=== PATIENT | female | born 1980 | race Two or more races ===

== ENCOUNTER 2020-03-31 05:34 | Emergency (ER) | payer MEDICAID ==
[~2020-03-31] VITALS: Ht 172.7 cm; Wt 86.2 kg
[2020-03-31 05:50] VITALS: BP 111/83
[2020-03-31] MEDS ORDERED: ACETAMINOPHEN 500 MG TAB PO ONE (06:45)
[2020-03-31] MEDS ORDERED: cefTRIAXone SOD 1,000 MG VL IM ONE (06:45)
== END 2020-03-31 07:37 | disposition home or self-care (01) ==
LOC: ER 05:34
DX: J02.9 Acute pharyngitis, unspecified (principal); Z20.822 Contact with and (suspected) exposure to COVID-19
CPT/HCPCS: 36415; 71045; 87426; 96372; 99284; J0696

== ENCOUNTER 2020-05-09 18:29 | Emergency (ER) | payer MEDICAID ==
[~2020-05-09] VITALS: Ht 175.3 cm; Wt 86.2 kg
[2020-05-09 19:08] LABS: Basophils # (auto) 0.1 10 ^3/uL (0-0.2); Basophils % (auto) 1.1 % (0.0-2.0); Eosinophils # (auto) 0.3 10 ^3/uL (0-0.8); Eosinophils % (auto) 4.2 % (0.0-7.0); Hematocrit 36.4 % (36.0-46.0); Hemoglobin 12.3 g/dL (12.2-16.2); Lymphocytes # (auto) 2.2 10 ^3/uL (0.4-5.4); Lymphocytes % (auto) 33.1 % (10.0-50.0); Mean Corpuscular Hemoglobin 31.1 pg (28.0-32.0); Mean Corpuscular Hgb Conc. 33.7 g/dL (32.0-36.0); Mean Corpuscular Volume 92.3 fL (80.0-100.0); Monocytes # (auto) 0.4 10 ^3/uL (0-1.3); Monocytes % (auto) 6.4 % (0.0-12.0); Neutrophils # (auto) 3.7 10 ^3/uL (1.6-8.6); Neutrophils % (auto) 55.2 % (37.0-80.0); Nucleated Red Blood Cells % 0.1 %; Red Blood Cells 3.95 10^6/uL (4.0-5.20); Red Cell Distribution Width 13.7 % (11.8-14.3); White Blood Cell 6.7 10^3/uL (4.4-10.8)
[2020-05-09 19:34] LABS: Chloride 111 mmol/L (98-107); Potassium 4.2 mmol/L (3.5-5.1); Sodium 141 mmol/L (136-145)
[2020-05-09 19:41] LABS: INR 1.01 (0.9-1.15); Partial Thromboplastin Time 26.3 sec (23.0-31.2)
[2020-05-09 19:43] LABS: Alanine Aminotransferase 31 U/L (13-56); Albumin 3.6 g/dL (3.4-5.0); Alkaline Phosphatase 93 U/L (45-117); Anion Gap 4 (5-15); Aspartate Aminotransferase 24 U/L (15-37); Bilirubin, Total 0.2 mg/dL (0.2-1.0); Blood Urea Nitrogen 16 mg/dL (7-18); Calcium 8.4 mg/dL (8.5-10.1); Carbon Dioxide 26 mmol/L (21-32); GFR African American 133 mL/min; GFR Non-African American 110 mL/min; Glucose 92 mg/dL (74-106); Total Protein 7.1 g/dL (6.4-8.2)
[2020-05-09 19:52] VITALS: BP 113/64
[2020-05-09 21:26] LABS: Urine Bacteria FEW /hpf (None Seen); Urine Blood Negative /uL (Negative); Urine Mucus FEW (None Seen); Urine Specific Gravity 1.024 (1.001-1.035); Urine WBC 9 /hpf (0 - 5); Urine WBC Clumps PRESENT /hpf (None Seen)
== END 2020-05-09 21:05 | disposition home or self-care (01) ==
LOC: ER 18:30
DX: R07.89 Other chest pain (principal); M54.12 Radiculopathy, cervical region
CPT/HCPCS: 36415; 71045; 72125; 80053; 81001; 83880; 84484; 85025; 85379; 85610; 85730; 93005

== ENCOUNTER 2021-02-06 14:08 | Emergency (ER) | payer MEDICAID ==
[~2021-02-06] VITALS: Ht 175.3 cm; Wt 81.6 kg
[2021-02-06 14:11] VITALS: BP 119/72
[2021-02-06 14:35] LABS: Basophils # (auto) 0.1 10 ^3/uL (0-0.2); Eosinophils # (auto) 0.4 10 ^3/uL (0-0.8); Eosinophils % (auto) 4.6 % (0.0-7.0); Hematocrit 37.9 % (36.0-46.0); Hemoglobin 12.6 g/dL (12.2-16.2); Lymphocytes # (auto) 1.9 10 ^3/uL (0.4-5.4); Lymphocytes % (auto) 23.3 % (10.0-50.0); Mean Corpuscular Hemoglobin 30.5 pg (28.0-32.0); Mean Corpuscular Hgb Conc. 33.2 g/dL (32.0-36.0); Mean Corpuscular Volume 91.9 fL (80.0-100.0); Monocytes # (auto) 0.6 10 ^3/uL (0-1.3); Monocytes % (auto) 7.2 % (0.0-12.0); Neutrophils # (auto) 5.2 10 ^3/uL (1.6-8.6); Neutrophils % (auto) 63.9 % (37.0-80.0); Red Blood Cells 4.13 10^6/uL (4.0-5.20); Red Cell Distribution Width 13.4 % (11.8-14.3); White Blood Cell 8.2 10^3/uL (4.4-10.8)
== END 2021-02-06 16:31 | disposition home or self-care (01) ==
LOC: ER 14:08
DX: N93.8 Other specified abnormal uterine and vaginal bleeding (principal); R42 Dizziness and giddiness; Z32.02 Encounter for pregnancy test, result negative
CPT/HCPCS: 36415; 76830; 76856; 84702; 85025

== ENCOUNTER 2021-02-19 11:48 | Emergency (ER) | payer MEDICAID ==
[~2021-02-19] VITALS: Ht 172.7 cm; Wt 77.1 kg
[2021-02-19 14:08] VITALS: BP 112/72
[2021-02-19] MEDS ORDERED: PRED20TA2 PO (14:54)
[2021-02-19] MEDS ORDERED: AMOX-277 PO (14:54)
== END 2021-02-19 15:03 | disposition home or self-care (01) ==
LOC: ER 11:48
DX: J06.9 Acute upper respiratory infection, unspecified (principal); Z20.822 Contact with and (suspected) exposure to COVID-19
CPT/HCPCS: 36415; 71045; 87426

== ENCOUNTER 2021-05-29 18:18 | Inpatient (IN) | payer MEDICAID ==
[~2021-05-29] VITALS: Ht 154.9 cm; Wt 102.4 kg
[~2021-05-29 18:18] MED LIST: AMOX-277 PO; PRED20TA2 PO
[2021-05-29 19:25] LABS: Urine Bacteria FEW /hpf (None Seen); Urine Blood Negative /uL (Negative); Urine Mucus FEW (None Seen); Urine Specific Gravity 1.025 (1.001-1.035); Urine WBC 12 /hpf (0 - 5)
[2021-05-29] MEDS ORDERED: cefTRIAXone 1GM/50ML D5W 50 ML IV ONE (20:00)
[2021-05-29] MEDS ORDERED: fentaNYL CITRATE 100 MCG/2 ML VL IV ONE (20:00)
[2021-05-29 20:17] LABS: Basophils # (auto) 0.1 10 ^3/uL (0-0.2); Basophils % (auto) 0.9 % (0.0-2.0); Eosinophils # (auto) 0.2 10 ^3/uL (0-0.8); Eosinophils % (auto) 1.2 % (0.0-7.0); Hematocrit 37.6 % (36.0-46.0); Hemoglobin 12.4 g/dL (12.2-16.2); Lymphocytes # (auto) 1.2 10 ^3/uL (0.4-5.4); Lymphocytes % (auto) 8.3 % (10.0-50.0); Mean Corpuscular Hgb Conc. 33.1 g/dL (32.0-36.0); Mean Corpuscular Volume 90.7 fL (80.0-100.0); Monocytes # (auto) 0.9 10 ^3/uL (0-1.3); Monocytes % (auto) 6.6 % (0.0-12.0); Neutrophils # (auto) 11.6 10 ^3/uL (1.6-8.6); Red Blood Cells 4.14 10^6/uL (4.0-5.20); Red Cell Distribution Width 13.7 % (11.8-14.3); White Blood Cell 13.9 10^3/uL (4.4-10.8)
[2021-05-29 20:34] LABS: Albumin 3.3 g/dL (3.4-5.0); Calcium 8.5 mg/dL (8.5-10.1); Potassium 3.8 mmol/L (3.5-5.1)
[2021-05-29 20:37] LABS: BUN/Creatinine Ratio 17.6; Bilirubin, Total 0.2 mg/dL (0.2-1.0); CRP High Sensitivity 0.7 mg/dL (< 0.3); Total Protein 7.2 g/dL (6.4-8.2)
[2021-05-29] MEDS ORDERED: KETOROLAC TROMETH 30 MG/ML 1ML VIAL IV ONE (21:30)
[2021-05-29] MEDS ORDERED: HYDROmorphone HCL 2 MG/ML VL IV ONE (22:15)
[2021-05-29] MEDS ORDERED: SODIUM CHLORIDE 0.9% 1,000 ML IV ONE (22:15)
[2021-05-29] MEDS ORDERED: MORPHINE SULFATE INJECTION 2 MG/ML SYRG IV PRN (23:00)
[2021-05-29] MEDS ORDERED: ONDANSETRON HCL 4 MG/2 ML VIAL IV PRN (23:00)
[2021-05-29 23:03] LABS: INR 1.03 (0.9-1.15); Partial Thromboplastin Time 28.8 sec (23.6-33.0)
[2021-05-29] MEDS: D5W/SOD CHLO 0.9% 1,000 ML IV SCH (23:30)
[2021-05-30] MEDS: D5W/SOD CHLO 0.9% 1,000 ML IV SCH (01:30)
[2021-05-30 01:38] VITALS: BP 116/75
[2021-05-30] MEDS ORDERED: INFLUENZA QUAD 2021-2022 0.5 ML SYRG IM ONE (02:30)
[2021-05-30 05:00] VITALS: BP 116/60
[2021-05-30 05:43] LABS: Basophils # (auto) 0.1 10 ^3/uL (0-0.2); Basophils % (auto) 0.6 % (0.0-2.0); Eosinophils # (auto) 0.1 10 ^3/uL (0-0.8); Eosinophils % (auto) 1.4 % (0.0-7.0); Hemoglobin 12.1 g/dL (12.2-16.2); Lymphocytes # (auto) 1.7 10 ^3/uL (0.4-5.4); Lymphocytes % (auto) 16.5 % (10.0-50.0); Mean Corpuscular Hgb Conc. 34.6 g/dL (32.0-36.0); Mean Corpuscular Volume 89.8 fL (80.0-100.0); Monocytes # (auto) 0.8 10 ^3/uL (0-1.3); Monocytes % (auto) 8.1 % (0.0-12.0); Neutrophils # (auto) 7.4 10 ^3/uL (1.6-8.6); Neutrophils % (auto) 73.4 % (37.0-80.0); Nucleated Red Blood Cells % 0.2 %; Red Cell Distribution Width 13.6 % (11.8-14.3)
[2021-05-30 06:03] LABS: Potassium 3.5 mmol/L (3.5-5.1)
[2021-05-30 06:12] LABS: Albumin 2.8 g/dL (3.4-5.0); BUN/Creatinine Ratio 20.8; Bilirubin, Total 0.3 mg/dL (0.2-1.0); Calcium 8.2 mg/dL (8.5-10.1); Total Protein 6.5 g/dL (6.4-8.2)
[2021-05-30 09:00] VITALS: BP 160/80
[2021-05-30] MEDS: PANTOPRAZOLE 40 MG/10 ML VIAL INJ IV SCH (09:48)
[2021-05-30] MEDS ORDERED: ceFAZolin 1GM/50ML 100 ML IV ONE (12:13)
[2021-05-30] MEDS ORDERED: BUPIVACAINE W/ EPINEPH 0.25% INJ 50ML MDV ONE (12:34)
[2021-05-30 12:37] VITALS: BP 118/75
[2021-05-30] MEDS ORDERED: fentaNYL CITRATE 100 MCG/2 ML VL ONE (12:40)
[2021-05-30] MEDS ORDERED: DexAMETHasone SOD PHOS 10MG/1ML VIAL INJ ONE (12:40)
[2021-05-30] MEDS ORDERED: ROCURONIUM 10MG/ML 10ML VIAL IV ONE (12:40)
[2021-05-30] MEDS ORDERED: MEPERIDINE HCL (50 MG/ML) 1 ML VIAL ONE (12:40)
[2021-05-30] MEDS ORDERED: ONDANSETRON HCL 4 MG/2 ML VIAL IV ONE (12:40)
[2021-05-30] MEDS ORDERED: PROPOFOL 10 MG/ML 20 ML IV ONE (12:40)
[2021-05-30] MEDS ORDERED: MIDAZOLAM HCL 2MG/2ML 2ml VIAL (1mg/ml) ONE (12:40)
[2021-05-30] MEDS ORDERED: hydrALAZINE HCL 20 MG/ML VL IV PRN (13:15)
[2021-05-30] MEDS ORDERED: KETOROLAC TROMETH 30 MG/ML 1ML VIAL IV ONE (13:15)
[2021-05-30] MEDS ORDERED: MORPHINE SULFATE 4 MG/ML SYR/VIAL IV PRN (13:15)
[2021-05-30] MEDS ORDERED: METOCLOPRAMIDE HCL 5MG/ml INJ 2ml VIAL IV PRN (13:15)
[2021-05-30] MEDS ORDERED: LABETALOL HCL 5 MG/ML 4ML SYRINGE IV PRN (13:15)
[2021-05-30] MEDS ORDERED: MIDAZOLAM HCL 2MG/2ML 2ml VIAL (1mg/ml) IV PRN (13:15)
[2021-05-30] MEDS ORDERED: ePHEDrine SULFATE 50 MG/ML AMP IV PRN (13:15)
[2021-05-30] MEDS ORDERED: ONDANSETRON HCL 4 MG/2 ML VIAL IV PRN ×2 (13:15→14:00)
[2021-05-30] MEDS ORDERED: SUGAMMADEX 200mg/2ml Vial (100MG/ML) IV ONE (13:47)
[2021-05-30] MEDS ORDERED: MORPHINE SULFATE INJECTION 2 MG/ML SYRG IV PRN (14:00)
[2021-05-30] MEDS: HYDROmorphone HCL 2 MG/ML VL IV PRN ×4 (14:17→23:20)
[2021-05-30] MEDS: ceFAZolin 1GM/50ML 50 ML IV SCH ×2 (14:30→22:12)
[2021-05-30] MEDS ORDERED: LACTATED RINGER'S 1,000 ML IV SCH (14:30)
[2021-05-30 17:00] VITALS: BP 110/74
[2021-05-30] MEDS ORDERED: cefTRIAXone 1GM/50ML D5W 50 ML IV SCH (21:00)
[2021-05-30 22:00] VITALS: BP 117/84
[2021-05-30 23:09] LABS: Basophils # (auto) 0 10 ^3/uL (0-0.2); Basophils % (auto) 0.5 % (0.0-2.0); Eosinophils # (auto) 0 10 ^3/uL (0-0.8); Hematocrit 35.2 % (36.0-46.0); Hemoglobin 11.8 g/dL (12.2-16.2); Lymphocytes # (auto) 0.4 10 ^3/uL (0.4-5.4); Lymphocytes % (auto) 4.1 % (10.0-50.0); Mean Corpuscular Hemoglobin 30.2 pg (28.0-32.0); Mean Corpuscular Hgb Conc. 33.4 g/dL (32.0-36.0); Mean Corpuscular Volume 90.4 fL (80.0-100.0); Monocytes # (auto) 0.3 10 ^3/uL (0-1.3); Monocytes % (auto) 2.7 % (0.0-12.0); Neutrophils # (auto) 10.1 10 ^3/uL (1.6-8.6); Neutrophils % (auto) 92.7 % (37.0-80.0); Red Blood Cells 3.89 10^6/uL (4.0-5.20); Red Cell Distribution Width 13.6 % (11.8-14.3); White Blood Cell 10.9 10^3/uL (4.4-10.8)
[2021-05-31] MEDS: D5W/SOD CHLO 0.9% 1,000 ML IV SCH ×2 (01:57→15:00)
[2021-05-31] MEDS: HYDROmorphone HCL 2 MG/ML VL IV PRN (04:09)
[2021-05-31 04:54] VITALS: BP 120/76
[2021-05-31] MEDS: ceFAZolin 1GM/50ML 50 ML IV SCH ×3 (05:52→22:02)
[2021-05-31 06:05] LABS: Basophils # (auto) 0 10 ^3/uL (0-0.2); Basophils % (auto) 0.4 % (0.0-2.0); Eosinophils # (auto) 0 10 ^3/uL (0-0.8); Hematocrit 33.5 % (36.0-46.0); Hemoglobin 11.2 g/dL (12.2-16.2); Lymphocytes % (auto) 8.9 % (10.0-50.0); Mean Corpuscular Hemoglobin 30.1 pg (28.0-32.0); Mean Corpuscular Hgb Conc. 33.3 g/dL (32.0-36.0); Mean Corpuscular Volume 90.4 fL (80.0-100.0); Monocytes # (auto) 0.9 10 ^3/uL (0-1.3); Monocytes % (auto) 7.6 % (0.0-12.0); Neutrophils # (auto) 9.3 10 ^3/uL (1.6-8.6); Neutrophils % (auto) 83.1 % (37.0-80.0); Nucleated Red Blood Cells % 0.1 %; Red Blood Cells 3.71 10^6/uL (4.0-5.20); Red Cell Distribution Width 13.7 % (11.8-14.3); White Blood Cell 11.1 10^3/uL (4.4-10.8)
[2021-05-31 06:23] LABS: Potassium 3.6 mmol/L (3.5-5.1)
[2021-05-31 06:36] LABS: BUN/Creatinine Ratio 15.8; Calcium 8.2 mg/dL (8.5-10.1)
[2021-05-31] MEDS ORDERED: DOCUSATE SOD 100 MG CAP PO PRN (08:15)
[2021-05-31] MEDS ORDERED: DOCU-94 PO (08:29)
[2021-05-31] MEDS ORDERED: ONDA-144 PO (08:29)
[2021-05-31] MEDS ORDERED: HYDR-4902 PO (08:29)
[2021-05-31] MEDS: HYDROcodone-ACET 5/325MG TAB PO PRN ×2 (08:59→13:00)
[2021-05-31 09:00] VITALS: BP 128/72
[2021-05-31] MEDS: PANTOPRAZOLE 40 MG/10 ML VIAL INJ IV SCH (09:37)
[2021-05-31 13:00] VITALS: BP 114/79
[2021-05-31 17:00] VITALS: BP 122/71
[2021-05-31] MEDS ORDERED: HYDROcodone-ACET 10/325MG TAB PO ONE (17:15)
[2021-05-31] MEDS ORDERED: PERCOT PO (17:39)
[2021-05-31 20:00] VITALS: BP 126/78
[2021-05-31 21:56] VITALS: BP 126/78
[2021-05-31] MEDS: OXYCODONE W/ ACETAMINOPHEN 5/325MG TABLET PO PRN (22:06)
[2021-06-01] MEDS: OXYCODONE W/ ACETAMINOPHEN 5/325MG TABLET PO PRN ×3 (04:16→18:16)
[2021-06-01 04:52] VITALS: BP 132/81
[2021-06-01] MEDS: ceFAZolin 1GM/50ML 50 ML IV SCH (05:48)
[2021-06-01] MEDS ORDERED: ACETAMINOPHEN 325 MG TAB PO PRN (06:15)
[2021-06-01] MEDS ORDERED: CIPR-173 PO (08:19)
[2021-06-01 08:38] VITALS: BP 121/77
[2021-06-01] MEDS: PANTOPRAZOLE 40 MG/10 ML VIAL INJ IV SCH (10:06)
[2021-06-01] MEDS: PIPERACILLIN-TAZOB 3.375GM 100 ML IV SCH ×3 (11:44→23:35)
[2021-06-01 12:28] VITALS: BP 131/86
[2021-06-01 16:15] LABS: Eosinophils # (auto) 0.1 10 ^3/uL (0-0.8); Mean Corpuscular Hemoglobin 30.3 pg (28.0-32.0); Neutrophils # (auto) 3.8 10 ^3/uL (1.6-8.6)
[2021-06-01 16:22] LABS: BUN/Creatinine Ratio 8.3; Potassium 3.7 mmol/L (3.5-5.1)
[2021-06-01 16:30] LABS: Basophils # (auto) 0 10 ^3/uL (0-0.2); Basophils % (auto) 0.5 % (0.0-2.0); Eosinophils % (auto) 1.1 % (0.0-7.0); Hematocrit 32.1 % (36.0-46.0); Hemoglobin 10.8 g/dL (12.2-16.2); Lymphocytes # (auto) 0.8 10 ^3/uL (0.4-5.4); Lymphocytes % (auto) 16.1 % (10.0-50.0); Mean Corpuscular Hgb Conc. 33.7 g/dL (32.0-36.0); Mean Corpuscular Volume 90.1 fL (80.0-100.0); Monocytes # (auto) 0.5 10 ^3/uL (0-1.3); Monocytes % (auto) 8.7 % (0.0-12.0); Neutrophils % (auto) 73.6 % (37.0-80.0); Nucleated Red Blood Cells % 0.2 %; Red Blood Cells 3.56 10^6/uL (4.0-5.20); Red Cell Distribution Width 13.9 % (11.8-14.3); White Blood Cell 5.2 10^3/uL (4.4-10.8)
[2021-06-01] MEDS ORDERED: IOHEXOL 300 MG/ML 100ML BOTTLE IJ ONE (16:42)
[2021-06-01 16:45] VITALS: BP 125/70
[2021-06-01] MEDS: SODIUM CHLORIDE 0.9% 1,000 ML IV SCH (17:47)
[2021-06-01 22:00] VITALS: BP 121/76
[2021-06-01] MEDS ORDERED: MORPHINE SULFATE INJECTION 2 MG/ML SYRG IV PRN (23:15)
[2021-06-02] MEDS: SODIUM CHLORIDE 0.9% 1,000 ML IV SCH (03:15)
[2021-06-02] MEDS: OXYCODONE W/ ACETAMINOPHEN 5/325MG TABLET PO PRN ×2 (03:16→11:31)
[2021-06-02 05:11] VITALS: BP 113/69
[2021-06-02] MEDS: PIPERACILLIN-TAZOB 3.375GM 100 ML IV SCH (05:34)
[2021-06-02 06:09] LABS: Basophils # (auto) 0 10 ^3/uL (0-0.2); Basophils % (auto) 0.8 % (0.0-2.0); Eosinophils # (auto) 0.3 10 ^3/uL (0-0.8); Eosinophils % (auto) 5.8 % (0.0-7.0); Hematocrit 32.6 % (36.0-46.0); Lymphocytes # (auto) 1.2 10 ^3/uL (0.4-5.4); Lymphocytes % (auto) 20.9 % (10.0-50.0); Mean Corpuscular Hemoglobin 30.5 pg (28.0-32.0); Mean Corpuscular Hgb Conc. 33.9 g/dL (32.0-36.0); Mean Corpuscular Volume 89.8 fL (80.0-100.0); Monocytes # (auto) 0.6 10 ^3/uL (0-1.3); Monocytes % (auto) 11.5 % (0.0-12.0); Neutrophils # (auto) 3.4 10 ^3/uL (1.6-8.6); Nucleated Red Blood Cells % 0.1 %; Red Blood Cells 3.62 10^6/uL (4.0-5.20); Red Cell Distribution Width 13.5 % (11.8-14.3); White Blood Cell 5.6 10^3/uL (4.4-10.8)
[2021-06-02 06:25] LABS: Calcium 8.5 mg/dL (8.5-10.1); Potassium 3.4 mmol/L (3.5-5.1)
[2021-06-02 06:30] LABS: BUN/Creatinine Ratio 8.2
[2021-06-02] MEDS: PANTOPRAZOLE 40 MG/10 ML VIAL INJ IV SCH (08:01)
[2021-06-02 09:00] VITALS: BP 115/75
[2021-06-02] MEDS ORDERED: AMOXICILLIN/CLAVUL 875 MG TAB PO SCH (11:30)
[2021-06-02] MEDS ORDERED: POTASSIUM CHL 20 Meq TABLET PO ONE (11:30)
== END 2021-06-02 13:33 | disposition home or self-care (01) | DRG 513 ==
LOC: ER 18:18 → OVERFLOW 22:48 → CENTRAL 23:58
PROVIDERS: ADMIT Nurse Practitioner; ATTEND Hospitalist
PROC: 0DNW0ZZ Release Peritoneum, Open Approach (ICD-10-PCS; 2021-05-30)
PROC: 0UB10ZZ Excision of Left Ovary, Open Approach (ICD-10-PCS; 2021-05-30)
PROC: 0UB60ZZ Excision of Left Fallopian Tube, Open Approach (ICD-10-PCS; principal; 2021-05-30 12:27)
DX: N83.292 Other ovarian cyst, left side (principal); Z68.41 Body mass index [BMI] 40.0-44.9, adult; E66.01 Morbid (severe) obesity due to excess calories; D72.829 Elevated white blood cell count, unspecified; J98.11 Atelectasis; N39.0 Urinary tract infection, site not specified; N83.291 Other ovarian cyst, right side; E87.6 Hypokalemia; Z20.822 Contact with and (suspected) exposure to COVID-19; N73.6 Female pelvic peritoneal adhesions (postinfective); R50.82 Postprocedural fever; Z98.82 Breast implant status; Z23 Encounter for immunization
CPT/HCPCS: 36415; 74176; 74177; 76830; 76856; 80048; 80053; 81001; 81025; 85025; 85610; 85730; 86141; 86304; 86850; 86900; 86901; 87040; 96361; 96365; 96375; C9113; G0378; J0690; J0696; J1100; J1885; J2250; J2405; J2543; J2704; J7042

== ENCOUNTER 2021-10-01 16:46 | Emergency (ER) | payer MEDICAID ==
[~2021-10-01] VITALS: Ht 172.7 cm; Wt 100.0 kg
[~2021-10-01 16:46] MED LIST changes: +CIPR-173 PO; +DOCU-94 PO; +ONDA-144 PO; +PERCOT PO
[2021-10-01 16:58] VITALS: BP 112/72
[2021-10-01] MEDS ORDERED: ONDANSETRON HCL 4 MG/2 ML VIAL IV ONE (17:00)
[2021-10-01] MEDS ORDERED: MORPHINE SULFATE 4 MG/ML SYR/VIAL IV ONE (17:00)
[2021-10-01] MEDS ORDERED: SODIUM CHLORIDE 0.9% 1,000 ML IVB ONE (17:00)
[2021-10-01 17:20] LABS: Urine Bacteria FEW /hpf (None Seen); Urine Blood Negative /uL (Negative); Urine Specific Gravity 1.017 (1.001-1.035); Urine WBC 10 /hpf (0 - 5)
[2021-10-01 18:25] LABS: Basophils # (auto) 0 10 ^3/uL (0-0.2); Basophils % (auto) 0.3 % (0.0-2.0); Eosinophils # (auto) 0.1 10 ^3/uL (0-0.8); Eosinophils % (auto) 1.2 % (0.0-7.0); Hematocrit 39.6 % (36.0-46.0); Hemoglobin 12.7 g/dL (12.2-16.2); Lymphocytes # (auto) 0.4 10 ^3/uL (0.4-5.4); Lymphocytes % (auto) 5.5 % (10.0-50.0); Mean Corpuscular Hemoglobin 28.8 pg (28.0-32.0); Mean Corpuscular Volume 90.1 fL (80.0-100.0); Monocytes # (auto) 0.1 10 ^3/uL (0-1.3); Monocytes % (auto) 0.7 % (0.0-12.0); Neutrophils # (auto) 6.9 10 ^3/uL (1.6-8.6); Neutrophils % (auto) 92.3 % (37.0-80.0); Nucleated Red Blood Cells % 0.1 %; Red Blood Cells 4.39 10^6/uL (4.0-5.20); Red Cell Distribution Width 14.1 % (11.8-14.3); White Blood Cell 7.5 10^3/uL (4.4-10.8)
[2021-10-01 18:41] LABS: Potassium 3.6 mmol/L (3.5-5.1)
[2021-10-01 18:45] LABS: Albumin 3.5 g/dL (3.4-5.0); BUN/Creatinine Ratio 9.6; Calcium 8.4 mg/dL (8.5-10.1)
[2021-10-01] MEDS ORDERED: ONDA-144 PO (18:45)
[2021-10-01] MEDS ORDERED: CIPR-173 PO (18:45)
[2021-10-01 18:47] LABS: Bilirubin, Total 0.3 mg/dL (0.2-1.0); Total Protein 7.5 g/dL (6.4-8.2)
== END 2021-10-01 22:19 | disposition left against medical advice (07) ==
LOC: ER 16:46
DX: R10.31 Right lower quadrant pain (principal); R11.2 Nausea with vomiting, unspecified; R19.7 Diarrhea, unspecified; Z90.710 Acquired absence of both cervix and uterus; Z79.2 Long term (current) use of antibiotics; Z79.899 Other long term (current) drug therapy; Z20.822 Contact with and (suspected) exposure to COVID-19
CPT/HCPCS: 36415; 74176; 80053; 81001; 82150; 83690; 85025

== ENCOUNTER 2022-01-14 14:25 | Emergency (ER) | payer MEDICAID ==
[~2022-01-14] VITALS: Ht 172.7 cm; Wt 86.1 kg
[2022-01-14 16:19] VITALS: BP 119/63
== END 2022-01-14 19:30 | disposition left against medical advice (07) ==
LOC: ER 14:25
DX: M25.562 Pain in left knee (principal); Z53.21 Procedure and treatment not carried out due to patient leaving prior to being seen by health care provider; W18.39XA Other fall on same level, initial encounter; Y93.89 Activity, other specified; Y92.89 Other specified places as the place of occurrence of the external cause; Y99.8 Other external cause status

== ENCOUNTER 2022-02-26 15:32 | Emergency (ER) | payer MEDICAID ==
[~2022-02-26] VITALS: Ht 172.7 cm; Wt 86.5 kg
[2022-02-26 16:12] LABS: Basophils # (auto) 0.1 10 ^3/uL (0-0.2); Basophils % (auto) 0.6 % (0.0-2.0); Eosinophils # (auto) 0.2 10 ^3/uL (0-0.8); Eosinophils % (auto) 2.7 % (0.0-7.0); Hematocrit 39.9 % (36.0-46.0); Hemoglobin 13.6 g/dL (12.2-16.2); Lymphocytes % (auto) 24.4 % (10.0-50.0); Mean Corpuscular Hemoglobin 30.2 pg (28.0-32.0); Mean Corpuscular Hgb Conc. 34.1 g/dL (32.0-36.0); Mean Corpuscular Volume 88.4 fL (80.0-100.0); Monocytes # (auto) 0.7 10 ^3/uL (0-1.3); Monocytes % (auto) 8.2 % (0.0-12.0); Neutrophils # (auto) 5.1 10 ^3/uL (1.6-8.6); Neutrophils % (auto) 64.1 % (37.0-80.0); Nucleated Red Blood Cells % 0.1 %; Red Blood Cells 4.52 10^6/uL (4.0-5.20); Red Cell Distribution Width 14.1 % (11.8-14.3)
[2022-02-26 16:23] LABS: Albumin 3.6 g/dL (3.4-5.0); Calcium 8.7 mg/dL (8.5-10.1); Potassium 3.9 mmol/L (3.5-5.1)
[2022-02-26 16:27] LABS: Bilirubin, Total 0.4 mg/dL (0.2-1.0)
[2022-02-26 16:33] LABS: Urine Amorphous Crystal FEW /hpf (None Seen); Urine Bacteria NONE SEEN /hpf (None Seen); Urine Blood Negative /uL (Negative); Urine Specific Gravity 1.007 (1.001-1.035); Urine WBC 3 /hpf (0 - 5)
[2022-02-26 23:25] LABS: Amphetamine Screen, Urine NEGATIVE (NEGATIVE); Barbiturate Scree,Urine NEGATIVE (NEGATIVE); Benzodiazephine Screen, Urine NEGATIVE (NEGATIVE); Cannabinoid Screen, Urine NEGATIVE (NEGATIVE); Cocaine Screen, Urine NEGATIVE (NEGATIVE); Opiate Scree,Urine NEGATIVE (NEGATIVE); Phencyclidine Screen, Urine NEGATIVE (NEGATIVE)
[2022-02-26 23:50] LABS: Alcohol, Urine < 3.0 mg/dL (0-10)
[2022-02-27 01:43] VITALS: BP 113/69
== END 2022-02-27 01:45 | disposition home or self-care (01) ==
LOC: ER 15:32
DX: R10.84 Generalized abdominal pain (principal); R74.8 Abnormal levels of other serum enzymes; Z79.2 Long term (current) use of antibiotics; Z79.899 Other long term (current) drug therapy
CPT/HCPCS: 36415; 74176; 80053; 80307; 81001; 83605; 83690; 84702; 85025

== ENCOUNTER 2022-03-31 16:37 | Emergency (ER) | payer MEDICAID ==
[~2022-03-31] VITALS: Ht 172.7 cm; Wt 98.8 kg
[2022-03-31 17:05] VITALS: BP 104/57
== END 2022-04-01 05:46 | disposition left against medical advice (07) ==
LOC: ER 16:37
DX: A53.9 Syphilis, unspecified (principal); Z76.0 Encounter for issue of repeat prescription; Z53.1 Procedure and treatment not carried out because of patient's decision for reasons of belief and group pressure

== ENCOUNTER 2023-01-17 20:20 | Emergency (ER) | payer MEDICAID ==
[~2023-01-17] VITALS: Ht 172.7 cm; Wt 103.9 kg
[~2023-01-17 20:20] MED LIST changes: -AMOX-277 PO; +AMOX875T4 PO
[2023-01-17 20:33] VITALS: BP 115/59; PULSE 82; RESP 16; O2SAT 97
[2023-01-17 21:31] LABS: COVID19 ANTIGEN SOFIA FIA NEGATIVE (NEGATIVE); Rapid Influenza A Negative (Negative); Rapid Influenza B Negative (Negative)
== END 2023-01-17 22:59 | disposition left against medical advice (07) ==
LOC: ER 20:20
DX: J02.9 Acute pharyngitis, unspecified (principal); R11.2 Nausea with vomiting, unspecified; R19.7 Diarrhea, unspecified; R50.9 Fever, unspecified; Z20.822 Contact with and (suspected) exposure to COVID-19; Z53.21 Procedure and treatment not carried out due to patient leaving prior to being seen by health care provider
CPT/HCPCS: 36415; 87426; 87804

== ENCOUNTER 2023-03-18 10:46 | Emergency (ER) | payer MEDICAID ==
[~2023-03-18] VITALS: Ht 172.7 cm; Wt 101.4 kg
[2023-03-18 11:46] LABS: Basophils # (auto) 0.1 10 ^3/uL (0-0.2); Basophils % (auto) 0.6 % (0.0-2.0); Eosinophils # (auto) 0.1 10 ^3/uL (0-0.8); Eosinophils % (auto) 1.2 % (0.0-7.0); Hematocrit 39.4 % (36.0-46.0); Lymphocytes # (auto) 2.2 10 ^3/uL (0.4-5.4); Lymphocytes % (auto) 23.5 % (10.0-50.0); Mean Corpuscular Hemoglobin 30.7 pg (28.0-32.0); Mean Corpuscular Volume 93.1 fL (80.0-100.0); Monocytes # (auto) 0.6 10 ^3/uL (0-1.3); Monocytes % (auto) 6.1 % (0.0-12.0); Neutrophils # (auto) 6.3 10 ^3/uL (1.6-8.6); Neutrophils % (auto) 68.6 % (37.0-80.0); Nucleated Red Blood Cells % 0.1 %; Red Blood Cells 4.23 10^6/uL (4.0-5.20); White Blood Cell 9.2 10^3/uL (4.4-10.8)
[2023-03-18 12:41] LABS: Urine Bacteria NONE SEEN /hpf (None Seen); Urine Blood 3+ /uL (Negative); Urine Clarity Clear (Clear); Urine Color PINK (Yellow); Urine Protein, UAD TRACE (Negative); Urine Specific Gravity 1.019 (1.001-1.035); Urine Urobilinogen Normal (Negative); Urine WBC 31 /hpf (0 - 5)
[2023-03-18 14:22] VITALS: BP 99/64; PULSE 70; RESP 18; TEMP 98.1; O2SAT 97
== END 2023-03-18 14:23 | disposition home or self-care (01) ==
LOC: ER 10:46
DX: D25.9 Leiomyoma of uterus, unspecified (principal); R10.2 Pelvic and perineal pain; N92.0 Excessive and frequent menstruation with regular cycle; Z98.890 Other specified postprocedural states; Z79.899 Other long term (current) drug therapy
CPT/HCPCS: 36415; 76856; 81001; 84702; 85025

== ENCOUNTER 2023-09-17 16:03 | Emergency (ER) | payer MEDICAID ==
[~2023-09-17] VITALS: Ht 172.7 cm; Wt 94.8 kg
[2023-09-17 16:57] LABS: Basophils # (auto) 0.1 10 ^3/uL (0-0.2); Basophils % (auto) 0.9 % (0.0-2.0); Eosinophils # (auto) 0.4 10 ^3/uL (0-0.8); Eosinophils % (auto) 5.5 % (0.0-7.0); Hematocrit 38.3 % (36.0-46.0); Hemoglobin 12.9 g/dL (12.2-16.2); Lymphocytes # (auto) 1.9 10 ^3/uL (0.4-5.4); Lymphocytes % (auto) 30.4 % (10.0-50.0); Mean Corpuscular Hemoglobin 30.7 pg (28.0-32.0); Mean Corpuscular Hgb Conc. 33.6 g/dL (32.0-36.0); Mean Corpuscular Volume 91.1 fL (80.0-100.0); Monocytes # (auto) 0.4 10 ^3/uL (0-1.3); Monocytes % (auto) 6.4 % (0.0-12.0); Neutrophils # (auto) 3.6 10 ^3/uL (1.6-8.6); Neutrophils % (auto) 56.8 % (37.0-80.0); Red Blood Cells 4.21 10^6/uL (4.0-5.20); Red Cell Distribution Width 13.8 % (11.8-14.3); White Blood Cell 6.4 10^3/uL (4.4-10.8)
[2023-09-17] MEDS: HYDROcodone-ACET 5/325MG TAB PO ONE (17:00)
[2023-09-17] MEDS: KETOROLAC TROMETH 60MG/2ML VIAL IM ONE (17:01)
[2023-09-17 17:08] LABS: Alanine Aminotransferase 23 U/L (7-40); Albumin 4.1 g/dL (3.2-4.8); Alkaline Phosphatase 110 U/L (46-116); Anion Gap 5 (5-15); Aspartate Aminotransferase 17 U/L (13-40); BUN/Creatinine Ratio 12.8 (10.0-20.0); Bilirubin, Total 0.2 mg/dL (0.2-1.0); Blood Urea Nitrogen 11 mg/dL (9-23); Calcium 8.7 mg/dL (8.7-10.4); Carbon Dioxide 27 mmol/L (20-30); Chloride 110 mmol/L (98-107); Glucose 101 mg/dL (74-106); Potassium 4.1 mmol/L (3.5-5.1); Sodium 142 mmol/L (136-145); Total Protein 6.5 g/dL (5.7-8.2)
[2023-09-17] MEDS ORDERED: GABA-1250 PO (19:20)
[2023-09-17] MEDS ORDERED: IBUP-1455 PO (19:20)
[2023-09-17 19:45] VITALS: BP 110/63; PULSE 20; RESP 20; TEMP 98.1; O2SAT 98
== END 2023-09-17 19:48 | disposition home or self-care (01) ==
LOC: ER 16:03
DX: R07.89 Other chest pain (principal); M79.602 Pain in left arm; Z98.890 Other specified postprocedural states; Z79.899 Other long term (current) drug therapy
CPT/HCPCS: 36415; 71045; 80053; 84484; 85025; 85379; 93005; 96372; 99285; J1885

== ENCOUNTER 2024-03-03 20:30 | Emergency (ER) | payer MEDICAID ==
[~2024-03-03] VITALS: Ht 172.7 cm; Wt 95.5 kg
[~2024-03-03 20:30] MED LIST changes: +GABA-1250 PO; +IBUP-1455 PO
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
[2024-03-03 21:58] VITALS: BP 120/73; PULSE 78; RESP 16; TEMP 98.2; O2SAT 97
[2024-03-03] MEDS: KETOROLAC TROMETH 30 MG/ML 1ML VIAL IM ONE (22:06)
[2024-03-03] MEDS ORDERED: ACET650T12 PO (22:15)
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
== END 2024-03-03 22:54 | disposition home or self-care (01) ==
LOC: ER 20:30
DX: S09.90XA Unspecified injury of head, initial encounter (principal); M25.512 Pain in left shoulder; Z79.52 Long term (current) use of systemic steroids; Z79.899 Other long term (current) drug therapy; V43.52XA Car driver injured in collision with other type car in traffic accident, initial encounter; Y93.I9 Activity, other involving external motion; Y92.89 Other specified places as the place of occurrence of the external cause; Y99.8 Other external cause status
CPT/HCPCS: 70450; 72125; 96372; 99285; J1885

== ENCOUNTER 2024-05-15 14:14 | Emergency (ER) | payer MEDICAID ==
[~2024-05-15] VITALS: Ht 172.7 cm; Wt 97.4 kg
[~2024-05-15 14:14] MED LIST changes: +ACET650T12 PO
--- NOTE | 2024-05-15 15:25 | DVH ---
EXAM: XY CERVICAL SPINE 3V INDICATION: LEFT ARM NUMBNESS COMPARISON: None TECHNIQUE: 3 views of the cervical spine were obtained. Findings: There is no evidence of an acute fracture, spondylolysis, or spondylolisthesis. Moderate spondylosis. The vertebral body heights are well-maintained. Straightening of the cervical lordosis. No blastic or lytic lesions are appreciated. No radiopaque foreign bodies. No superficial soft tissue abnormalities. Impression: 1. No acute osseous abnormality. 2. Moderate degenerative changes of the cervical spine. 3. Straightening of the cervical lordosis which may be positional versus muscle spasm.
[2024-05-15] MEDS ORDERED: GABA300T4 PO (16:05)
--- NOTE | 2024-05-15 16:07 | ED.PDOC ---
Musculoskeletal HPI Comments 44 y.o female presents to the ED for a chief complaint of left arm numbness and tenderness that started 6 hours ago. Patient reports symptoms woke her up from her sleep, states she took an 800mg Ibuprofen but had no relief. Patient is unable to make a fist due to pain. She denies any recent trauma, falls, sprains, strains, or heavy lifting. Chief Complaint: Upper Extremity Time Seen by MD: 16:00 Primary Care Provider: AMADO Du Notes: Nurses Notes, Medications, Allergies Allergies: Coded Allergies: NO KNOWN ALLERGIES (Unverified , 05/09/20) Home Meds Active Scripts Gabapentin (Once-Daily) (Gabapentin) 300 Mg Tab, 300 MG PO TID PRN for 10 Days, #30 TAB Prov:RASTA TROTTER MD 05/15/24 Acetaminophen (Acetaminophen Er) 650 Mg Tab, 650 MG PO TIDPRN PRN for 5 Days, #15 TAB Prov:BRIJESH QUEVEDO MD 03/03/24 Gabapentin (Gabapentin) 300 Mg Cap, 1 CAP PO TID PRN, #30 CAP 5 Refills prn pain Prov:DANIEL SWANSON MD 09/17/23 Ibuprofen Micronized (Ibuprofen) 800 Mg Tab, 800 MG PO Q8HP PRN, #30 TAB prn pain, take with food Prov:DANIEL SWANSON MD 09/17/23 Ondansetron (Zofran) 4 Mg Tab, 1 TAB PO Q6HR, #20 TAB Prov:MIGEL CYR MD 10/01/21 Ciprofloxacin Hcl (Cipro) 500 Mg Tab, 1 TAB PO BID, #20 TAB Prov:MIGEL CYR MD 10/01/21 Ciprofloxacin Hcl (Cipro) 500 Mg Tab, 500 MG PO BID for 10 Days, #20 TAB Prov:DANAE RODRIGUEZ DO 06/01/21 Oxycodone W/ Acetaminophen (Percocet 5/325MG) 1 Tab Tb, 1 TAB PO Q6HP PRN for 5 Days, #20 MG Prov:MARISABEL LINDO MD 05/31/21 Ondansetron (Zofran) 4 Mg Tab, 4 MG PO Q6HPRN PRN, #20 TAB Prov:MARISABEL LINDO MD 05/31/21 Docusate Sodium (Colace) 100 Mg Cap, 1 CAP PO BID PRN MDD Constipation , #60 CAP 0 Refills Prov:MARISABEL LINDO MD 05/31/21 Prednisone (Prednisone) 20 Mg Tab, 20 MG PO BID for 5 Days, #10 MG Prov:CHRISTIN JACKSON 02/19/21 Amoxicillin & Pot Clavulanate (Amoxicillin/Potassium Cla) 875 Mg Tab, 1 TAB PO BID, #14 TAB Prov:CHRISTIN JACKSON 02/19/21 Information Source: Patient Mode of Arrival: Ambulatory Location: Left Extremity Location: Arm Timing: Hours Severity: Moderate Able to Move Extremity: Yes Bear Weight: Limited Pain: Moderate Mechanism: None Circumstances: Spontaneous Onset of Symptoms: Spontaneous Symptoms: Pain Associated signs and symptoms: Arm pain Past Medical History PAST MEDICAL HISTORY: Denies Surgical History: Denies all surgeries 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 Family History Family History: Reviewed,noncontributory to illness Social History Smoker: Non-Smoker Alcohol: Denies ETOH Use Drugs: Denies Drug Use Lives In: Home Constitutional: denies: chills, diaphoresis, fatigue, fever, malaise, sweats, weakness, others EENTM: denies: blurred vision, double vision, ear bleeding, ear discharge, ear drainage, ear pain, ear ringing, eye pain, eye redness, hearing loss, mouth pain, mouth swelling, nasal discharge, nose bleeding, nose congestion, nose pain, photophobia, tearing, throat pain, throat swelling, voice changes, others Respiratory: denies: cough, hemoptysis, orthopnea, SOB at rest, shortness of breath, SOB with excertion, stridor, wheezing, others Cardiovascular: denies: chest pain, dizzy spells, diaphoresis, Dyspnea on exertion, edema, irregular heart beat, left arm pain, lightheadedness, palpitations, PND, syncope, others Gastrointestinal: denies: abdomen distended, abdominal pain, blood streaked bowels, constipated, diarrhea, dysphagia, difficulty swallowing, hematemesis, m brian, nausea, poor appetite, poor fluid intake, rectal bleeding, rectal pain, vomiting, others Genitourinary: denies: abnormal vagina bleeding, burning, dyspareunia, dysuria, flank pain, frequency, hematuria, incontinence, pain, , vagina discharge, urgency, others Neurological: denies: dizziness, fainting, headache, left sided numbness, left sided weakness, numbness, paresthesia, pre-existing deficit, right sided numbness, right sided weakness, seizure, speech problems, tingling, tremors, weakness, others Musculoskeletal: reports: others (left arm pain ); denies: back pain, gout, joint pain, joint swelling, muscle pain, muscle stiffness, neck pain Integumetry: denies: bruises, change in color, change in hair/nails, dryness, laceration, lesions, lumps, rash, wounds, others Allergic/Immunocompromised: denies: Difficulty Healing, Frequent Infections, Hives, Itching, others Hematologic/Lymphatic: denies: anemia, blood clots, easy bleeding, easy bruising, swollen glands, others Endocrine: denies: excessive hunger, excessive sweating, excessive thirst, excessive urination, flushing, intolerance to cold, intolerance to heat, unexplained weight gain, unexplained weight loss, others Psychiatric: denies: anxiety, bipolar disorder, depression, hopeless, panic disorder, schizophrenia, sleepless, suicidal, others All Other Systems: Reviewed and Negative Physical Exam General Appearance: No Apparent Distress, Normal HEENT: Normal ENT Inspection, Pharynx Normal, TMs Normal Neck: Full Range of Motion, Non-Tender, Normal, Normal Inspection Respiratory: Chest Non-Tender, Lungs Clear, No Accessory Muscle Use, No Respiratory Distress, Normal Breath Sounds Cardiovascular: No Edema, No JVD, No Murmur, No Gallop, Normal Peripheral Pulses, Regular Rate/Rhythm Breast Exam: Deferred Gastrointestinal: No Organomegaly, Non Tender, No Pulsatile Mass, Normal Bowel Sounds, Soft Genitalia: Deferred Pelvic: Deferred Rectal: Deferred Extremities: No calf tenderness, Normal capillary refill, Normal inspection, Normal range of motion, Non-tender, No pedal edema Musculoskeletal : Location: Left Extremity Location: Arm Apperance: Tenderness: Moderate (to the left bicep, elbow and wrist tendons ) Neurologic: Alert, cage operator II-XII nml as Tested, No Motor Deficits, Normal Affect, Normal Mood, No Sensory Deficits Cerebellar Function: Normal Reflexes: Normal Skin: Dry, Normal Color, Warm Lymphatic: No Adenopathy Was a procedure done? Was a procedure done?: No Differential Diagnosis EXT Differential Diagnosis: Sprain, Gout, Contusion, Strain, Arthritis X-Ray, Labs, Meds, VS Vital Signs Date Time Temp Pulse Resp B/P (MAP) Pulse Ox O2 Delivery O2 Flow Rate FiO2 05/15/24 16:26 98.6 71 20 121/70 (87) 95 98.6 05/15/24 16:26 71 20 05/15/24 14:20 97.2 72 18 114/65 (81) 97 97.2 Lab Test 05/15/24 14:25 Range/Units POC Glucose 119 H 70-106 mg/dl Current Medications Medications (Trade) Dose Ordered Sig/Phil Route Start Time Stop Time Status Last Admin Acetaminophen/ Hydrocodone Bitart ([place] 5/325MG Tab) 1 tab ONCE ONCE PO 05/15/24 16:15 05/15/24 16:16 DC 05/15/24 16:18 Time of 1ST Reevaluation: 16:06 Reevaluation 1ST: Unchanged Patient Education/Counseling: Diagnosis, Treatment, Prognosis Family Education/Counseling: No Family Present Departure 1 Departure Time of Disposition: 17:00 Impression: Primary Impression: Left wrist tendonitis Additional Impressions: Strain of left elbow and forearm Pain in left arm Cervical radiculopathy at C6 Disposition: 01 HOME / SELF CARE / HOMELESS Condition: Stable e-Prescriptions Gabapentin (Once-Daily) (Gabapentin) 300 Mg Tab 300 MG PO TID PRN for 10 Days, #30 TAB Prov: RASTA TROTTER MD 05/15/24 Discharged With: Self Critical Care Note Critical Care Time?: No Stability Stability form required: No I personally scribed for RASTA TROTTER MD ([email or web address]) on 05/15/24 at 16:07. Electronically submitted by Brittney Garces ([facility]). RASTA TROTTER MD May 15, 2024 16:07
[2024-05-15] MEDS: HYDROcodone-ACET 5/325MG TAB PO ONE (16:18)
[2024-05-15 16:26] VITALS: BP 121/70; PULSE 71; RESP 20; TEMP 98.6; O2SAT 95
== END 2024-05-15 16:33 | disposition home or self-care (01) ==
LOC: ER 14:14
DX: S66.812A Strain of other specified muscles, fascia and tendons at wrist and hand level, left hand, initial encounter (principal); M77.8 Other enthesopathies, not elsewhere classified; M47.22 Other spondylosis with radiculopathy, cervical region; X58.XXXA Exposure to other specified factors, initial encounter; Y93.89 Activity, other specified; Y92.89 Other specified places as the place of occurrence of the external cause; Y99.8 Other external cause status
CPT/HCPCS: 72040; 82947; 82962

== ENCOUNTER 2025-01-28 14:53 | Inpatient (IN) | payer MEDICAID ==
[~2025-01-28] VITALS: Ht 172.7 cm; Wt 100.5 kg
[~2025-01-28 14:53] MED LIST changes: +GABA300T4 PO
[2025-01-28 15:29] LABS: Hematocrit 41.6 % (36.0-46.0); Hemoglobin 14.2 g/dL (12.2-16.2); Mean Corpuscular Hemoglobin 30.6 pg (28.0-32.0); Mean Corpuscular Volume 89.9 fL (80.0-100.0); Nucleated Red Blood Cells % 0.0 %
[2025-01-28 15:35] LABS: Urine Protein, UAD Negative (Negative)
[2025-01-28 15:41] LABS: Albumin 4.2 g/dL (3.2-4.8); Anion Gap 10 (5-15); BUN/Creatinine Ratio 15.9 (10.0-20.0); Bilirubin, Total 0.3 mg/dL (0.2-1.0); Blood Urea Nitrogen 10 mg/dL (9-23); Calcium 9.3 mg/dL (8.7-10.4); Carbon Dioxide 25 mmol/L (20-31); Chloride 107 mmol/L (98-107); Potassium 3.8 mmol/L (3.5-5.1); Sodium 142 mmol/L (136-145); Total Protein 7.1 g/dL (5.7-8.2)
[2025-01-28 15:46] LABS: Alanine Aminotransferase 56 U/L (7-40); Alkaline Phosphatase 128 U/L (46-116); Glucose 119 mg/dL (74-106)
--- NOTE | 2025-01-28 15:48 | ED.PDOC ---
General HPI Comments HPI: Louie 45 y.o F presents to the ED for a chief complaint of right abdominal pain radiating to her flank and back associated with a fever and dysuria x 1 week. Patient reports a fever of 101 F. Patient took 800mg Ibuprofen yesterday for pain management but states no relief. She has pain on palpation. No hematuria, chills, nausea, vomiting reported. Initial Vitals BP: 128/80 HR: 89 RR: 18 O2: 96% RA Temp: 98.5 F Past Medical History: Denies Past Surgical History: Tummy tuck and breast implants Social History: Denies Medications: Denies Allergies: NKDA HPI: Poor Historian. REVIEW OF SYSTEMS: CONSTITUTIONAL: Denies acute: diaphoresis, chills, generalized weakness. HEAD: Denies acute: headache, photophobia Eyes: Denies acute: Double vision, vision loss, eye pain, eye discharge. EARS: Denies acute: tinnitus, hearing loss, ear discharge, ear pain, THROAT: Denies acute: sore throat, swelling, difficulty swallowing , pain with swallowing, change in voice. NECK: Denies acute: neck pain, neck swelling, stiff neck. HEART: Denies acute : chest pain, palpitations, LUNGS: Denies acute: SOB, wheezing, cough, hemoptysis ABDOMEN: Denies acute: Nausea, Vomiting, diarrhea, melena , hematemesis, hematochezia SKIN: Denies acute: rash, redness, lesions, itchiness. EXTREMITIES: Denies acute: calf pain, numbness, tingling, weakness, denies pain in extremity. Denies acute: Low back pain. Neuro: Denies acute: focal neurological deficit, motor or sensory focal neurological deficit, tremors, seizure like activity, confusion, dizziness, change in mental status, loss of bowel or bladder function, cauda equina like symptoms. : Denies acute: hematuria, PSYCH: Denies acute: hallucination, suicidal ideation, homicidal ideation. FEMALE: Denies acute: abnormal vaginal bleeding, foul odor, unusual discharge. PHYSICAL EXAM: General: --moderate------acute distress, awake and alert. Head: normocephalic, atraumatic. No raccoon's eyes, no yadav sign. Neck: supple, trachea is midline, no swelling. Throat: Normal phonation. Eyes:, no erythema, no purulent discharge, no proptosis, no icterus. Heart: regular rate, regular rhythm, no significant murmur appreciated. Lungs: no apparent respiratory distress, Able to speak in full sentences. No wheezing, no rhonchi, no crackles. No stridors Clear to auscultation bilaterally. Abdomen: Right sided tender to palpation, non distended, soft, no guarding, no rebound, + bowel sounds. Neuro: Awake, Alert, oriented to name, self, situation, follows commands GCS=15. Speech is normal. Skin: no petechia, no purpura, no cyanosis, non-pale, not jaundice. Lower extremities: --no - Pitting edema no deformity, no focal swelling, no calf TTP. Makes eye contact. moves all four extremities. Face: no apparent facial droop. Right CVA tenderness to percussion Ambulating in the ED independently. ED COURSE: DISCLAIMER: This medical document was created using an electronic medical record system with voice recognition software and computerized dictation system. Although this document has been carefully reviewed, there might still be some phonetic and typographical errors. Occasional wrong-word or "sound-alike" substitutions may have occurred due to the inherent limitations of voice recognition software. These areas are purely typographical due to imperfections of the software programs and do not reflect any compromise in the patient's medical care. Please read the chart carefully and recognize, using context, where these substitutions have occurred. Chief Complaint: Flank Pain Time Seen by MD: 15:33 Primary Care Provider: AMADO Du notes: Allergies Allergies: Coded Allergies: NO KNOWN ALLERGIES (Unverified , 05/09/20) Home Meds Active Scripts Gabapentin (Once-Daily) (Gabapentin) 300 Mg Tab, 300 MG PO TID PRN for 10 Days, #30 TAB Prov:RASTA TROTTER MD 05/15/24 Acetaminophen (Acetaminophen Er) 650 Mg Tab, 650 MG PO TIDPRN PRN for 5 Days, #15 TAB Prov:BRIJESH QUEVEDO MD 03/03/24 Gabapentin (Gabapentin) 300 Mg Cap, 1 CAP PO TID PRN, #30 CAP 5 Refills prn pain Prov:DANIEL SWANSON MD 09/17/23 Ibuprofen Micronized (Ibuprofen) 800 Mg Tab, 800 MG PO Q8HP PRN, #30 TAB prn pain, take with food Prov:DANIEL SWANSON MD 09/17/23 Ondansetron (Zofran) 4 Mg Tab, 1 TAB PO Q6HR, #20 TAB Prov:MIGEL CYR MD 10/01/21 Ciprofloxacin Hcl (Cipro) 500 Mg Tab, 1 TAB PO BID, #20 TAB Prov:MIGEL CYR MD 10/01/21 Ciprofloxacin Hcl (Cipro) 500 Mg Tab, 500 MG PO BID for 10 Days, #20 TAB Prov:DANAE RODRIGUEZ DO 06/01/21 Oxycodone W/ Acetaminophen (Percocet 5/325MG) 1 Tab Tb, 1 TAB PO Q6HP PRN for 5 Days, #20 MG Prov:MARISABEL LINDO MD 05/31/21 Ondansetron (Zofran) 4 Mg Tab, 4 MG PO Q6HPRN PRN, #20 TAB Prov:MARISABEL LINDO MD 05/31/21 Docusate Sodium (Colace) 100 Mg Cap, 1 CAP PO BID PRN MDD Constipation , #60 CAP 0 Refills Prov:MARISABEL LINDO MD 05/31/21 Prednisone (Prednisone) 20 Mg Tab, 20 MG PO BID for 5 Days, #10 MG Prov:CHRISTIN JACKSON 02/19/21 Amoxicillin & Pot Clavulanate (Amoxicillin/Potassium Cla) 875 Mg Tab, 1 TAB PO BID, #14 TAB Prov:CHRISTIN JACKSON 02/19/21 Information Source: Patient Mode of Arrival: Ambulatory Was a procedure done? Was a procedure done?: No Differential Diagnosis Kidney stone (Female): Hepatitis, HNP, Musculoskeletal pain, Ovarian torsion, Pyelonephritis X-Ray, Labs, Meds, VS Vital Signs Date Time Temp Pulse Resp B/P (MAP) Pulse Ox O2 Delivery O2 Flow Rate FiO2 01/28/25 18:12 98.3 79 18 115/83 (94) 98 98.3 01/28/25 14:55 98.5 89 18 128/80 96 98.5 Lab Test 01/28/25 15:10 12/13/25 15:08 Range/Units White Blood Count 9.0 4.4-10.8 10^3/uL Red Blood Count 4.63 4.0-5.20 10^6/uL Hemoglobin 14.2 12.2-16.2 g/dL Hematocrit 41.6 36.0-46.0 % Mean Corpuscular Volume 89.9 80.0-100.0 fL Mean Corpuscular Hemoglobin 30.6 28.0-32.0 pg Mean Corpuscular Hemoglobin Concent 34.0 32.0-36.0 g/dL Red Cell Distribution Width 13.6 11.8-14.3 % Platelet Count 233 140-450 10^3/uL Mean Platelet Volume 9.5 6.9-10.8 fL Neutrophils (%) (Auto) 73.4 37.0-80.0 % Lymphocytes (%) (Auto) 16.1 10.0-50.0 % Monocytes (%) (Auto) 6.3 0.0-12.0 % Eosinophils (%) (Auto) 3.2 0.0-7.0 % Basophils (%) (Auto) 1.0 0.0-2.0 % Neutrophils # (Auto) 6.6 1.6-8.6 10 ^3/uL Lymphocytes # (Auto) 1.5 0.4-5.4 10 ^3/uL Monocytes # (Auto) 0.6 0-1.3 10 ^3/uL Eosinophils # (Auto) 0.3 0-0.8 10 ^3/uL Basophils # (Auto) 0.1 0-0.2 10 ^3/uL Nucleated Red Blood Cells 0.0 % Sodium Level 142 136-145 mmol/L Potassium Level 3.8 3.5-5.1 mmol/L Chloride Level 107 98-107 mmol/L Carbon Dioxide Level 25 20-31 mmol/L Anion Gap 10 5-15 Blood Urea Nitrogen 10 9-23 mg/dL Creatinine 0.63 0.550-1.02 mg/dL Glomerular Filtration Rate Calc 112 >90 mL/min BUN/Creatinine Ratio 15.9 10.0-20.0 Serum Glucose 119 H 74-106 mg/dL Lactic Acid Level 1.7 0.4-2.0 mmol/L Calcium Level 9.3 8.7-10.4 mg/dL Total Bilirubin 0.3 0.2-1.0 mg/dL Aspartate Amino Transferase (AST) 44 H 13-40 U/L Alanine Aminotransferase (ALT) 56 H 7-40 U/L Alkaline Phosphatase 128 H 46-116 U/L Total Protein 7.1 5.7-8.2 g/dL Albumin 4.2 3.2-4.8 g/dL Urine Color Light-yellow Yellow Urine Clarity Clear Clear Urine pH 5.0 5.0-9.0 Urine Specific [place] 1.018 1.001-1.035 Urine Protein Negative Negative Urine Ketones Negative Negative Urine Blood Negative Negative /uL Urine Nitrite Negative Negative Urine Bilirubin Negative Negative Urine Urobilinogen Normal Negative mg/dL Urine Leukocyte Esterase 2+ Negative /uL Urine RBC 2 0 - 4 /hpf Urine Microscopic WBC 11 H 0-5 /HPF Urine Squamous Epithelial Cells Few <5 /hpf Urine Bacteria Few H None Seen /hpf Urine Mucus Few None Seen Urine Glucose Normal Normal mg/dL Current Medications Medications (Trade) Dose Ordered Sig/Phil Route Start Time Stop Time Status Last Admin Sodium Chloride 1,000 ml @ 1,000 mls/hr Q1H ONCE IV 01/28/25 15:15 01/28/25 16:14 DC 01/28/25 18:11 Ceftriaxone Sodium 50 ml @ 100 mls/hr ONCE ONCE IV 01/28/25 16:15 01/28/25 16:44 DC 01/28/25 18:11 [place] [id number] Ph: [phone] DIAGNOSTIC IMAGING Diagnostic Imaging Report : [id number] Signed PATIENT: HÉCTOR CHUN ACCT: [id number] UNIT: [id number] : 1980 LOC: ER ROOM / BED: / AGE / SEX: 45 / F ADM STATUS: REG ER SERVICE 1503 ORDERING PHYSICIAN: RAMON EDGE DO PROCEDURE(s): ABPL - CT AB PEL WO CON-NO ORAL OR IV REASON: r flank pain ORDER NUMBER(s): [id number], ACCESSION NUMBER(s): [id number] EXAM: CT CT AB PEL WO CON-NO ORAL OR IV History: r flank pain Comparison Study: CT ABD PELVIS WO CONTRAST on DOS: 02/26/22, CT ABD PELVIS WO CONTRAST on DOS: 10/01/21, CT ABD PELVIS WO CONTRAST on DOS: 05/29/21 TECHNIQUE: Multidetector CT of the abdomen and pelvis without IV contrast. Axial, coronal and sagittal multiplanar reformats were obtained from the axial data set by the technologist. Radiation Dose Information: CT Dose: CTDI volume is 18.56 mGy. Dose-length product is 3.58 mGy*cm FINDINGS: Bibasilar atelectasis. Partially visualized heart is unremarkable. Hepatomegaly. Otherwise, liver, spleen, gallbladder, pancreas and adrenal glands unremarkable. Kidneys, ureters and urinary bladder unremarkable. Uterus and adnexa unremarkable. Intrauterine device is noted in place. Stomach is unremarkable. Small bowel loops unremarkable. Appendix is unremarkable. Segmental decompression of the mid transverse colon which may be from normal peristalsis. Otherwise, small to moderate amount of fecal material within the colon. No evidence of intraperitoneal free air or free fluid. No evidence of aortic aneurysm. No significant lymphadenopathy. The soft tissues are unremarkable. Partially visualized bilateral breast implants. No evidence of acute osseous abnormalities. IMPRESSION: No evidence of Acute abdominopelvic abnormalities. Small to moderate amount of fecal material within the colon. ATED BY: CHLOÉ MOLINA DO DICTATED DATE/TIME: 01/28/251551 SIGNED BY: CHLOÉ MOLINA DO SIGNED DATE/TIME: 01/28/251551 CC: Time of 1ST Reevaluation: 15:47 Reevaluation 1ST: Unchanged Patient Education/Counseling: Diagnosis, Treatment Family Education/Counseling: No Family Present Departure 1 Departure Time of Disposition: 16:05 Impression: Primary Impression: Pyelonephritis of right kidney Additional Impressions: UTI (urinary tract infection) Fever Disposition: ADMITTED INPATIENT Admit to: Tele Condition: Guarded Discharged With: Self Critical Care Note Critical Care Time?: No I personally scribed for RAMON EDGE DO ([email or web address]) on 01/28/25 at 15:48. Electronically submitted by Brittney Garces ([facility]). I personally scribed for RAMON EDGE DO ([email or web address]) on 01/28/25 at 16:03. Electronically submitted by Brittney Garces ([facility]). I personally scribed for RAMON EDGE DO ([email or web address]) on 01/28/25 at 19:02. Electronically submitted by Brittney Garces ([facility]). RAMON EDGE DO Jan 28, 2025 15:48
--- NOTE | 2025-01-28 15:54 | DVH ---
EXAM: CT CT AB PEL WO CON-NO ORAL OR IV History: r flank pain Comparison Study: CT ABD PELVIS WO CONTRAST on DOS: 02/26/22, CT ABD PELVIS WO CONTRAST on DOS: 10/01/21, CT ABD PELVIS WO CONTRAST on DOS: 05/29/21 TECHNIQUE: Multidetector CT of the abdomen and pelvis without IV contrast. Axial, coronal and sagittal multiplanar reformats were obtained from the axial data set by the technologist. Radiation Dose Information: CT Dose: CTDI volume is 18.56 mGy. Dose-length product is 3.58 mGy*cm FINDINGS: Bibasilar atelectasis. Partially visualized heart is unremarkable. Hepatomegaly. Otherwise, liver, spleen, gallbladder, pancreas and adrenal glands unremarkable. Kidneys, ureters and urinary bladder unremarkable. Uterus and adnexa unremarkable. Intrauterine device is noted in place. Stomach is unremarkable. Small bowel loops unremarkable. Appendix is unremarkable. Segmental decompression of the mid transverse colon which may be from normal peristalsis. Otherwise, small to moderate amount of fecal material within the colon. No evidence of intraperitoneal free air or free fluid. No evidence of aortic aneurysm. No significant lymphadenopathy. The soft tissues are unremarkable. Partially visualized bilateral breast implants. No evidence of acute osseous abnormalities. IMPRESSION: No evidence of Acute abdominopelvic abnormalities. Small to moderate amount of fecal material within the colon.
[2025-01-28] MEDS: SODIUM CHLORIDE 0.9% 1,000 ML IV ONE (18:11)
[2025-01-28] MEDS ORDERED: ACETAMINOPHEN 325 MG TAB PO PRN (19:30)
[2025-01-28] MEDS ORDERED: DOCUSATE SOD 100 MG CAP PO PRN (19:30)
[2025-01-28] MEDS ORDERED: ONDANSETRON HCL 4 MG/2 ML VIAL IV PRN (19:30)
[2025-01-28] MEDS: LACTATED RINGER'S 1,000 ML IV SCH (19:30)
--- NOTE | 2025-01-28 20:06 | DVHHP2 ---
History of Present Illness Reason for Visit: Acute abdominal pain History of Present Illness The patient is a 45-year-old female who denies past medical history presented to [facility] ED with complaint of acute abdominal pain. Patient reports abdominal pain, radiating to her right flank, black, associated with dysuria for the past 1 week. Patient was seen and evaluated in the ED, laboratory data shows WBC 9.0, platelets 233, sodium 142, potassium 3.8, BUN 10, creatinine 0.63, GFR 112, glucose 118, AST 44, ALT 56, alkaline phos 128, lactic acid 1.7, blood pressure 115/63, heart rate 79, temperature 98.3 F, O2 saturation 98% on room air. Urinalysis positive for urinary tract infection. Abdomen/pelvis CT showed no evidence of acute abdominopelvic abnormalities. Please see medication orders section in the computer. On my assessment, patient denied chest pain, no headache, dizziness, diaphoresis, shortness of breaths, no abdominal pain at this moment, diarrhea, nausea, vomiting, fever, no chills. Patient was admitted for further evaluation and medical management. Past Medical History Denies past medical history Past Surgical History Tummy tuck and Breast implants Family History Reviewed, noncontributory to the management of this case. Past Social History The patient lives at home, denies smoking, alcohol or illicit drugs abuse. Review of Systems Constitutional: No: Fever, Chills, Sweats, Weakness, Malaise, Other Eyes: No: Pain, Vision change, Conjunctivae inflammation, Eyelid inflammation, Other, Redness ENT: No: Ear pain, Ear discharge, Nose pain, Nose discharge, Nose congestion, Mouth pain, Mouth swelling, Throat pain, Throat swelling, Other Respiratory: No: Cough, Dry, Shortness of breath, SOB with excertion, Wheezing, Hemoptysis, Pleuritic Pain, Sputum, Wheezing, Other Cardiovascular: No: Chest Pain, Palpitations, Orthopnea, Paroxysmal Noc. Dyspnea, Edema, Lt Headedness, Other Gastrointestinal: Abdominal Pain; No: Nausea, Vomiting, Diarrhea, Constipation, Melena, Hematochezia, Other Genitourinary: No Dysuria, No Frequency, No Incontinence, No Hematuria, No Retention, No Other Musculoskeletal: No: other, neck pain, shoulder pain, arm pain, back pain, hand pain, leg pain, foot pain Skin: No: Rash, Lesions, Jaundice, Bruising, Other Neurological: No: Weakness, Numbness, Incoordination, Change in speech, Confusion, Seizures, Other Allergies: Coded Allergies: NO KNOWN ALLERGIES (Unverified , 05/09/20) Medications Current Medications Medications Dose Ordered Sig/Phil Route Start Time Stop Time Status Last Admin Dose Admin Ceftriaxone Sodium 50 ml @ 100 mls/hr Q24H IV 01/29/25 21:00 Lactated Ringer's 1,000 ml @ 75 mls/hr [id number] IV 01/28/25 19:30 Acetaminophen/ Hydrocodone Bitart 1 tab Q4HP PRN PO 01/28/25 19:30 Ondansetron HCl 4 mg Q4HP PRN IV 01/28/25 19:30 Docusate Sodium 100 mg BIDPRN PRN PO 01/28/25 19:30 Acetaminophen 650 mg Q6HP PRN PO 01/28/25 19:30 Exam Vital Signs Vital Signs Date Time Temp Pulse Resp B/P (MAP) Pulse Ox O2 Delivery O2 Flow Rate FiO2 01/28/25 18:12 79 18 98 Room Air 01/28/25 18:12 98.3 115/83 (94) 98.3 General Appearance: Alert, Oriented X3, Cooperative, No acute distress HEENT: Atraumatic, PERRLA, EOMI, Mucous membr. moist/pink Respiratory: Clear to auscultation, Normal air movement Cardiovascular: Regular rate, Normal S1, Normal S2, No murmurs Abdominal: Normal bowel sounds, Soft, No tenderness, No hepatospenomegaly, No masses Extremities: No clubbing, No cyanosis, No edema, Normal pulses, No tenderness/swelling Skin: No rashes, No significant lesion Neuro: Normal speech, Normal tone, Sensation intact, Cranial nerves 3-12 NL, Reflexes 2+ Psych/Mental Status: Mental status NL, Mood NL Labs/Xrays Labs Test 01/28/25 15:10 01/28/25 15:08 Range/Units White Blood Count 9.0 4.4-10.8 10^3/uL Red Blood Count 4.63 4.0-5.20 10^6/uL Hemoglobin 14.2 12.2-16.2 g/dL Hematocrit 41.6 36.0-46.0 % Mean Corpuscular Volume 89.9 80.0-100.0 fL Mean Corpuscular Hemoglobin 30.6 28.0-32.0 pg Mean Corpuscular Hemoglobin Concent 34.0 32.0-36.0 g/dL Red Cell Distribution Width 13.6 11.8-14.3 % Platelet Count 233 140-450 10^3/uL Mean Platelet Volume 9.5 6.9-10.8 fL Neutrophils (%) (Auto) 73.4 37.0-80.0 % Lymphocytes (%) (Auto) 16.1 10.0-50.0 % Monocytes (%) (Auto) 6.3 0.0-12.0 % Eosinophils (%) (Auto) 3.2 0.0-7.0 % Basophils (%) (Auto) 1.0 0.0-2.0 % Neutrophils # (Auto) 6.6 1.6-8.6 10 ^3/uL Lymphocytes # (Auto) 1.5 0.4-5.4 10 ^3/uL Monocytes # (Auto) 0.6 0-1.3 10 ^3/uL Eosinophils # (Auto) 0.3 0-0.8 10 ^3/uL Basophils # (Auto) 0.1 0-0.2 10 ^3/uL Nucleated Red Blood Cells 0.0 % Sodium Level 142 136-145 mmol/L Potassium Level 3.8 3.5-5.1 mmol/L Chloride Level 107 98-107 mmol/L Carbon Dioxide Level 25 20-31 mmol/L Anion Gap 10 5-15 Blood Urea Nitrogen 10 9-23 mg/dL Creatinine 0.63 0.550-1.02 mg/dL Glomerular Filtration Rate Calc 112 >90 mL/min BUN/Creatinine Ratio 15.9 10.0-20.0 Serum Glucose 119 H 74-106 mg/dL Lactic Acid Level 1.7 0.4-2.0 mmol/L Calcium Level 9.3 8.7-10.4 mg/dL Total Bilirubin 0.3 0.2-1.0 mg/dL Aspartate Amino Transferase (AST) 44 H 13-40 U/L Alanine Aminotransferase (ALT) 56 H 7-40 U/L Alkaline Phosphatase 128 H 46-116 U/L Total Protein 7.1 5.7-8.2 g/dL Albumin 4.2 3.2-4.8 g/dL Urine Color Light-yellow Yellow Urine Clarity Clear Clear Urine pH 5.0 5.0-9.0 Urine Specific [place] 1.018 1.001-1.035 Urine Protein Negative Negative Urine Ketones Negative Negative Urine Blood Negative Negative /uL Urine Nitrite Negative Negative Urine Bilirubin Negative Negative Urine Urobilinogen Normal Negative mg/dL Urine Leukocyte Esterase 2+ Negative /uL Urine RBC 2 0 - 4 /hpf Urine Microscopic WBC 11 H 0-5 /HPF Urine Squamous Epithelial Cells Few <5 /hpf Urine Bacteria Few H None Seen /hpf Urine Mucus Few None Seen Urine Glucose Normal Normal mg/dL PATIENT: HÉCTOR CHUN ACCT: [id number] UNIT: [id number] : 1980 LOC: ER ROOM / BED: / AGE / SEX: 45 / F ADM STATUS: REG ER SERVICE 1503 ORDERING PHYSICIAN: RAMON EDGE DO PROCEDURE(s): ABPL - CT AB PEL WO CON-NO ORAL OR IV REASON: r flank pain ORDER NUMBER(s): [id number], ACCESSION NUMBER(s): [id number] EXAM: CT CT AB PEL WO CON-NO ORAL OR IV History: r flank pain Comparison Study: CT ABD PELVIS WO CONTRAST on DOS: 02/26/22, CT ABD PELVIS WO CONTRAST on DOS: 10/01/21, CT ABD PELVIS WO CONTRAST on DOS: 05/29/21 TECHNIQUE: Multidetector CT of the abdomen and pelvis without IV contrast. Axial, coronal and sagittal multiplanar reformats were obtained from the axial data set by the technologist. Radiation Dose Information: CT Dose: CTDI volume is 18.56 mGy. Dose-length product is 3.58 mGy*cm FINDINGS: Bibasilar atelectasis. Partially visualized heart is unremarkable. Hepatomegaly. Otherwise, liver, spleen, gallbladder, pancreas and adrenal glands unremarkable. Kidneys, ureters and urinary bladder unremarkable. Uterus and adnexa unremarkable. Intrauterine device is noted in place. Stomach is unremarkable. Small bowel loops unremarkable. Appendix is unremarkable. Segmental decompression of the mid transverse colon which may be from normal peristalsis. Otherwise, small to moderate amount of fecal material within the colon. No evidence of intraperitoneal free air or free fluid. No evidence of aortic aneurysm. No significant lymphadenopathy. The soft tissues are unremarkable. Partially visualized bilateral breast implants. No evidence of acute osseous abnormalities. IMPRESSION: No evidence of Acute abdominopelvic abnormalities. Small to moderate amount of fecal material within the colon. SEPSIS Sepsis Screen Date sepsis recognized/suspect: Jan 28, 2025 Time Sepsis recognized/suspect: 1811 Recent Procedure: No On Antibiotic Therapy: Yes Respiratory Rate >20: No Heart Rate >90: No Temp<36 C (96.8 F) or >38.3 C: No SBP <90 or MAP <65 mmHG: No New Acute Mental Status Change: No Is the patient on CPAP, BIPAP,: No Physician Orders Electron Beam Welder (01/28/25 ) Ct Ab Pel Wo Con-No Oral Or Iv (01/28/25 15:03) Urine Bacterial Culture (01/28/25:) Ceftriaxone 1gm/50ml (Rocephin) (01/29/25 21:00) Lactated Ringer's (01/28/25 19:30) Allergies (01/28/25:) Code Status (01/28/25:) Oxygen Per Hour (01/28/25 19:27) Hydrocodone-Acet 5/325mg Tab ([place] 5/32 (01/28/25 19:30) Ondansetron Hcl (Zofran) (01/28/25 19:30) Docusate Sodium Capsule (Colace Capsule) (01/28/25 19:30) Complete Blood Count (01/29/25 04:00) Comprehensive Metabolic Panel (01/29/25 04:00) Cardiac Diet-2gna,Lofat,Lochol (01/29/25 Breakfast) Condition: Serious (01/28/25 19:27) Acetaminophen Tablet (Tylenol Tablet) (01/28/25 19:30) Bedrest With Bathroom Privileg (01/28/25 19:27) Sequential Compression Device (01/28/25 ) Vital Signs Date Time Temp Pulse Resp B/P (MAP) Pulse Ox O2 Delivery O2 Flow Rate FiO2 01/28/25 18:12 79 18 98 Room Air 01/28/25 18:12 98.3 79 18 115/83 (94) 98 98.3 01/28/25 14:55 98.5 89 18 128/80 96 98.5 Laboratory Tests Test 01/28/25 15:10 Lactic Acid Level 1.7 mmol/L (0.4-2.0) White Blood Count 9.0 10^3/uL (4.4-10.8) Medications Medications Dose Ordered Sig/Phil Route Start Time Stop Time Status Last Admin Dose Admin Ceftriaxone Sodium 50 ml @ 100 mls/hr ONCE ONCE IV 01/28/25 16:15 01/28/25 16:44 DC 01/28/25 18:11 100 MLS/HR Sodium Chloride 1,000 ml @ 1,000 mls/hr Q1H ONCE IV 01/28/25 15:15 01/28/25 16:14 DC 01/28/25 18:11 1,000 MLS/HR Assessment/Plan Assessment/Plan Acute abdominal pain Right flank pain Elevated liver enzymes UTI (urinary tract infection) Plan 1. Admit to med surge unit 2. Breathing treatment 3. Pain control management 4. IV antibiotic management 5. Management of fluids and electrolytes 6. Consultation for hospitalist 7. Diagnostic test abdomen/pelvis CT 8. DVT prophylaxis on SCDs 9. Repeat labs CBC, CMP in a.m. 10. Home medication reviewed and reconciled 11. Continue with current medical management 12. Treatment plan discussed with patient and RN. Patient verbalized understanding. Plan discussed with: Patient, Other (RN) My Orders Orders - ANGEL PARRA DNP Procedure Category Date Status Time Urine Bacterial RANDY 01/28/25 Logged Culture 19:27 Ceftriaxone 1gm/50ml PHA 01/29/25 In Process (Rocephin) 21:00 Lactated Ringer's PHA 01/28/25 In Process 19:30 Allergies NORMAN 01/28/25 In Process 19:27 Code Status CODE 01/28/25 Transmitted 19:27 Oxygen Per Hour RT 01/28/25 Transmitted 19:27 Hydrocodone-Acet PHA 01/28/25 In Process 5/325mg Tab ([place] 19:30 Ondansetron Hcl PHA 01/28/25 In Process (Zofran) 19:30 Docusate Sodium PHA 01/28/25 In Process Capsule (Colace 19:30 Complete Blood Count LAB 01/29/25 Verified 04:00 Comprehensive LAB 01/29/25 Verified Metabolic Panel 04:00 Cardiac DIET 01/29/25 Transmitted Diet-2gna,Lofat,Lochol Breakfast Condition: Serious [place] 01/28/25 In Process 19:27 Acetaminophen Tablet PHA 01/28/25 In Process (Tylenol Tablet) 19:30 Bedrest With Bathroom [place] 01/28/25 In Process Privileg 19:27 Sequential [place] 01/28/25 In Process Compression Device Problem List: (1) Acute abdominal pain (2) Right flank pain (3) Elevated liver enzymes (4) UTI (urinary tract infection) Date of Service: Jan 28, 2025 Billing Provider: ANGEL PARRA DNP Common Visit Codes: 41035-BHAGGGI INP/OBS CARE (HIGH) ANGEL PARRA DNP Jan 28, 2025 20:06
[2025-01-28] MEDS ORDERED: NITROGLYCERIN 0.4 MG SL TAB SL PRN (20:15)
[2025-01-28] MEDS ORDERED: MORPHINE SULFATE INJ 2 MG/ml SYRG IV PRN (20:15)
[2025-01-28 22:50] VITALS: BP 109/67; PULSE 70; RESP 17; TEMP 97.6; O2SAT 96
[2025-01-28] MEDS: HYDROcodone-ACET 5/325MG TAB PO PRN (23:36)
[2025-01-28] MEDS ORDERED: LEVO112T4 PO (23:40)
[2025-01-29 01:00] VITALS: BP 114/71; PULSE 68; RESP 17; TEMP 98; O2SAT 94
[2025-01-29 05:00] VITALS: BP 122/82; PULSE 57; RESP 17; TEMP 96.5; O2SAT 95
[2025-01-29 08:00] VITALS: PULSE 67; RESP 20; O2SAT 96
[2025-01-29 09:00] VITALS: BP 117/75; PULSE 67; RESP 20; TEMP 98.3; O2SAT 96
[2025-01-29 09:22] LABS: Hematocrit 37.1 % (36.0-46.0); Hemoglobin 12.5 g/dL (12.2-16.2); Mean Corpuscular Hemoglobin 30.3 pg (28.0-32.0); Mean Corpuscular Volume 90.1 fL (80.0-100.0); Nucleated Red Blood Cells % 0.0 %
[2025-01-29 09:38] LABS: Albumin 3.7 g/dL (3.2-4.8); Alkaline Phosphatase 109 U/L (46-116); Anion Gap 10 (5-15); BUN/Creatinine Ratio 13.6 (10.0-20.0); Bilirubin, Total 0.4 mg/dL (0.2-1.0); Calcium 9.1 mg/dL (8.7-10.4); Carbon Dioxide 28 mmol/L (20-31); Chloride 106 mmol/L (98-107); Sodium 144 mmol/L (136-145); Total Protein 6.2 g/dL (5.7-8.2)
[2025-01-29 09:39] LABS: Glucose 117 mg/dL (74-106); Potassium 3.5 mmol/L (3.5-5.1)
[2025-01-29 09:40] LABS: Alanine Aminotransferase 47 U/L (7-40); Blood Urea Nitrogen 9 mg/dL (9-23)
[2025-01-29] MEDS ORDERED: CIP500T GT (11:32)
[2025-01-29 13:07] VITALS: BP 117/75; PULSE 67; RESP 20; TEMP 98.2; O2SAT 96
--- NOTE | 2025-01-29 16:27 | DVHDS2 ---
Discharge Summary Date of Admission Jan 28, 2025 at 20:05 Date of Discharge: Jan 29, 2025 Labs/Diagnostic Data: Laboratory Results Test 01/29/25 08:46 01/28/25 15:10 01/28/25 15:08 White Blood Count 5.1 10^3/uL (4.4-10.8) Red Blood Count 4.12 10^6/uL (4.0-5.20) Hemoglobin 12.5 g/dL (12.2-16.2) Hematocrit 37.1 % (36.0-46.0) Mean Corpuscular Volume 90.1 fL (80.0-100.0) Mean Corpuscular Hemoglobin 30.3 pg (28.0-32.0) Mean Corpuscular Hemoglobin Concent 33.7 g/dL (32.0-36.0) Red Cell Distribution Width 13.4 % (11.8-14.3) Platelet Count 193 10^3/uL (140-450) Mean Platelet Volume 9.8 fL (6.9-10.8) Neutrophils (%) (Auto) 53.9 % (37.0-80.0) Lymphocytes (%) (Auto) 31.2 % (10.0-50.0) Monocytes (%) (Auto) 8.7 % (0.0-12.0) Eosinophils (%) (Auto) 5.3 % (0.0-7.0) Basophils (%) (Auto) 0.9 % (0.0-2.0) Neutrophils # (Auto) 2.8 10 ^3/uL (1.6-8.6) Lymphocytes # (Auto) 1.6 10 ^3/uL (0.4-5.4) Monocytes # (Auto) 0.4 10 ^3/uL (0-1.3) Eosinophils # (Auto) 0.3 10 ^3/uL (0-0.8) Basophils # (Auto) 0 10 ^3/uL (0-0.2) Nucleated Red Blood Cells 0.0 % Sodium Level 144 mmol/L (136-145) Potassium Level 3.5 mmol/L (3.5-5.1) Chloride Level 106 mmol/L (98-107) Carbon Dioxide Level 28 mmol/L (20-31) Anion Gap 10 (5-15) Blood Urea Nitrogen 9 mg/dL (9-23) Creatinine 0.66 mg/dL (0.550-1.02) Glomerular Filtration Rate Calc 111 mL/min (>90) BUN/Creatinine Ratio 13.6 (10.0-20.0) Serum Glucose 117 mg/dL (74-106) Calcium Level 9.1 mg/dL (8.7-10.4) Total Bilirubin 0.4 mg/dL (0.2-1.0) Aspartate Amino Transferase (AST) 35 U/L (13-40) Alanine Aminotransferase (ALT) 47 U/L (7-40) Alkaline Phosphatase 109 U/L (46-116) Total Protein 6.2 g/dL (5.7-8.2) Albumin 3.7 g/dL (3.2-4.8) Lactic Acid Level 1.7 mmol/L (0.4-2.0) Urine Color Light-yellow (Yellow) Urine Clarity Clear (Clear) Urine pH 5.0 (5.0-9.0) Urine Specific [place] 1.018 (1.001-1.035) Urine Protein Negative (Negative) Urine Ketones Negative (Negative) Urine Blood Negative /uL (Negative) Urine Nitrite Negative (Negative) Urine Bilirubin Negative (Negative) Urine Urobilinogen Normal mg/dL (Negative) Urine Leukocyte Esterase 2+ /uL (Negative) Urine RBC 2 /hpf (0 - 4) Urine Microscopic WBC 11 /HPF (0-5) Urine Squamous Epithelial Cells Few /hpf (<5) Urine Bacteria Few /hpf (None Seen) Urine Mucus Few (None Seen) Urine Glucose Normal mg/dL (Normal) Other Laboratory Tests 01/29/25 08:46 Brief Hx & Hospital Course: 45-year-old female who denies past medical history presented to [facility] ED with complaint of acute abdominal pain. Patient reports abdominal pain, radiating to her right flank, black, associated with dysuria for the past 1 week. Patient was seen and evaluated in the ED, laboratory data shows WBC 9.0, platelets 233, sodium 142, potassium 3.8, BUN 10, creatinine 0.63, GFR 112, glucose 118, AST 44, ALT 56, alkaline phos 128, lactic acid 1.7, blood pressure 115/63, heart rate 79, temperature 98.3 F, O2 saturation 98% on room air. Urinalysis positive for urinary tract infection. Abdomen/pelvis CT showed no evidence of acute abdominopelvic abnormalities. Please see medication orders section in the computer. On my assessment, patient denied chest pain, no headache, dizziness, diaphoresis, shortness of breaths, no abdominal pain at this moment, diarrhea, nausea, vomiting, fever, no chills. Patient was admitted for further evaluation and medical management. Had UTI that got better on IV abx DC on oral abx Condition at Discharge: Good Final Diagnosis/Problems List cystitis with hematuria Discharge Disposition: Home Discharge Instruct/Medications Diet: Regular Activity: No Restrictions, As Tolerated Follow Up/Referral: PCP in 7 days Medications: ciprofloxacin Scheduled Ciprofloxacin Hydrochloride (Ciprofloxacin HCl), 500 MG GT BID Levothyroxine Sodium (Levothyroxine Sodium), 1 TAB PO DAILY, (Reported) Discharge Statement: "Patient was advised to return to the ER or call 911 if any headaches, dizziness, shortness of breath, chest pain, abdominal pain, bleeding, fevers, or worsening of medical condition. Patient was counseled about treatment plan, medications, possible side effects, patientverbalized understanding. All questions were answered to the best of my ability. This discharge took greater then 30 minutes in planning, reviewing documentation, counseling the patient, and discussing with other team members." ASSESSMENT ASSESSMENT Assessment cystitis with hematuria Date of Service: Jan 29, 2025 Billing Provider: MACHO PERALTA MD Common Visit Codes: 86958-IAS/OBS DISCH DAY >30min MACHO PERALTA MD Jan 29, 2025 16:27
== END 2025-01-29 13:45 | disposition home or self-care (01) | DRG 463 ==
LOC: ER 14:53 → OVERFLOW 20:05 → WEST WING 22:38
PROVIDERS: ADMIT Nurse Practitioner Family; ATTEND Nurse Practitioner Family
DX: N12 Tubulo-interstitial nephritis, not specified as acute or chronic (principal); R16.0 Hepatomegaly, not elsewhere classified; R74.8 Abnormal levels of other serum enzymes; Z98.82 Breast implant status
CPT/HCPCS: 36415; 74176; 80053; 81001; 83605; 85025; 87086; 87088; 87186; 96365; G0378